=== PATIENT | female | born 1980 | race Caucasian/White ===

== ENCOUNTER 2023-06-08 06:55 | Emergency (ER) | payer MEDICAID, OTHER ==
[~2023-06-08] VITALS: Ht 170.2 cm; Wt 88.5 kg
[~2023-06-08 06:55] MED LIST: TRAM-748 PO
[2023-06-08 07:00] VITALS: BP 123/79; PULSE 100; RESP 19; TEMP 97.9; O2SAT 99
[2023-06-08] MEDS: LIDOCAINE 2% 1000 MG/50 ML VIAL INJ ONE (07:45)
[2023-06-08] MEDS ORDERED: SULF-59 PO (09:00)
[2023-06-08 09:28] VITALS: BP 107/75; PULSE 83; RESP 17; TEMP 36.61404; O2SAT 99
== END 2023-06-08 09:28 | disposition home or self-care (01) ==
LOC: MED 06:55
DX: N75.1 Abscess of Bartholin's gland (principal); R03.0 Elevated blood-pressure reading, without diagnosis of hypertension; Z79.899 Other long term (current) drug therapy; Z95.2 Presence of prosthetic heart valve
CPT/HCPCS: 56420; 99284; J2001; 56405

== ENCOUNTER 2023-06-10 08:00 | Emergency (ER) | payer OTHER ==
[~2023-06-10] VITALS: Ht 167.6 cm; Wt 86.8 kg
[~2023-06-10 08:00] MED LIST changes: +SULF-59 PO
[2023-06-10 08:02] VITALS: BP 136/79; PULSE 98; RESP 18; TEMP 97.7; O2SAT 100
[2023-06-10 08:28] VITALS: O2SAT 100
== END 2023-06-10 08:39 | disposition home or self-care (01) ==
LOC: MED 08:00
DX: Z48.00 Encounter for change or removal of nonsurgical wound dressing (principal); Z98.890 Other specified postprocedural states; R03.0 Elevated blood-pressure reading, without diagnosis of hypertension; Z79.899 Other long term (current) drug therapy; Z88.6 Allergy status to analgesic agent; Z88.8 Allergy status to other drugs, medicaments and biological substances
CPT/HCPCS: 99281